=== PATIENT | female | born 1945 | race Caucasian/White ===

== ENCOUNTER 2018-03-26 10:10 | Inpatient (IN) | payer OTHER ==
[~2018-03-26] VITALS: Ht 172.7 cm; Wt 82.1 kg
[2018-03-26] MEDS ORDERED: SODIUM CHLORIDE 0.9% 1,000 ML IV ONE (10:20)
[2018-03-26] MEDS ORDERED: IPRATROPIUM BROM 0.5 MG/2.5ML INH SOL HHN ONE (10:30)
[2018-03-26] MEDS ORDERED: methylPREDNISolone SOD SUCC 125 MG/2 ML VL IV ONE (10:30)
[2018-03-26] MEDS ORDERED: ALBUTEROL SULF 2.5 MG/0.5ML(0.5%) NEB SOLN HHN ONE (10:30)
[2018-03-26] MEDS ORDERED: KETOROLAC TROMETH 30 MG/ML 1ML VIAL IV ONE (10:45)
[2018-03-26 11:05] LABS: Eosinophils # (auto) 0.4 uL; Hematocrit 39.2 % (36.0-46.0); Hemoglobin 12.6 g/dL (12.2-16.2); Mean Corpuscular Hemoglobin 28.7 pg (28.0-32.0); Monocytes # (auto) 0.9 uL
[2018-03-26 11:08] LABS: Basophils # (auto) 0.2 uL; Basophils % (auto) 1.9 % (0.0-2.0); Eosinophils % (auto) 4.8 % (0.0-7.0); Lymphocytes # (auto) 1.3 uL; Lymphocytes % (auto) 15.4 % (10.0-50.0); Mean Corpuscular Hgb Conc. 32.3 g/dL (32.0-36.0); Monocytes % (auto) 11.5 % (0.0-12.0); Neutrophils # (auto) 5.5 uL; Neutrophils % (auto) 66.4 % (37.0-80.0); Nucleated Red Blood Cells % 0.1 %; Platelet Count (auto) 669 10^3/uL (140-450); Red Cell Distribution Width 18.3 % (11.8-14.3); White Blood Cell 8.2 10^3/uL (4.4-10.8)
[2018-03-26 11:34] LABS: Alanine Aminotransferase 11 U/L (13-56); Albumin 2.7 g/dL (3.4-5.0); Alkaline Phosphatase 93 U/L (45-117); Anion Gap 14 (5-15); Aspartate Aminotransferase 14 U/L (15-37); Bilirubin, Total 0.3 mg/dL (0.2-1.0); Blood Urea Nitrogen 8 mg/dL (7-18); Calcium 9.3 mg/dL (8.5-10.1); Carbon Dioxide 17 mmol/L (21-32); Chloride 106 mmol/L (98-107); GFR African American 156 mL/min; GFR Non-African American 129 mL/min; Glucose 81 mg/dL (74-106); Magnesium 2.6 mg/dL (1.6-2.6); Potassium 3.4 mmol/L (3.5-5.1); Sodium 137 mmol/L (136-145); Total Protein 7.9 g/dL (6.4-8.2)
[2018-03-26] MEDS ORDERED: ALBUTEROL SULF 2.5 MG/0.5ML(0.5%) NEB SOLN NEB PRN (12:45)
[2018-03-26] MEDS ORDERED: ACETAMINOPHEN 500 MG TAB PO PRN (12:45)
[2018-03-26] MEDS ORDERED: NITROGLYCERIN 0.4 MG SL TAB SL PRN (12:45)
[2018-03-26] MEDS ORDERED: MORPHINE SULFATE 8mg/ml INJ SDV IV PRN ×2 (12:45)
[2018-03-26] MEDS ORDERED: PROMETHAZINE HCL 25 MG/ML 1ML IV PRN (12:45)
[2018-03-26] MEDS ORDERED: LACTULOSE 20Gm/30ML SOLN PO PRN (12:45)
[2018-03-26] MEDS ORDERED: HYDROcodone-ACET 5/325MG TAB PO PRN (12:45)
[2018-03-26] MEDS: DOXYCYCLINE HYC 100MG/250ML 250 ML IV SCH (12:45)
[2018-03-26] MEDS: SODIUM CHLORIDE 0.9% 1,000 ML IV SCH (12:54)
[2018-03-26] MEDS: PANTOPRAZOLE 40 MG TAB PO SCH (13:00)
[2018-03-26 14:19] LABS: Alcohol, Urine < 3.0 mg/dL (0-5); Amphetamine Screen, Urine NEGATIVE (NEGATIVE); Barbiturate Scree,Urine NEGATIVE (NEGATIVE); Benzodiazephine Screen, Urine NEGATIVE (NEGATIVE); Cannabinoid Screen, Urine NEGATIVE (NEGATIVE); Cocaine Screen, Urine NEGATIVE (NEGATIVE); Opiate Scree,Urine NEGATIVE (NEGATIVE); Phencyclidine Screen, Urine NEGATIVE (NEGATIVE)
[2018-03-26 14:21] LABS: Urine Bacteria FEW /hpf (None Seen); Urine Blood TRACE /uL (Negative); Urine Mucus FEW (None Seen); Urine Specific Gravity 1.011 (1.001-1.035); Urine WBC 3 /hpf (0 - 5)
[2018-03-26] MEDS: methylPREDNISolone SOD SUCC 40 MG/ML VL IV SCH (18:06)
[2018-03-26] MEDS: IPRATROPIUM BROM 0.5 MG/2.5ML INH SOL NEB SCH ×2 (18:20→23:54)
[2018-03-26] MEDS: ALBUTEROL SULF 2.5 MG/0.5ML(0.5%) NEB SOLN NEB SCH ×2 (18:20→23:54)
[2018-03-26] MEDS ORDERED: cefTRIAXone 1GM/10ml IVPUSH 10 ML IV ONE (18:30)
[2018-03-26 21:19] VITALS: BP 128/80
[2018-03-27] VITALS (7 sets, daily range): BP systolic 98–136; BP diastolic 63–76
[2018-03-27] MEDS: methylPREDNISolone SOD SUCC 40 MG/ML VL IV SCH ×5 (00:27→23:32)
[2018-03-27] MEDS: LORazepam 0.5 MG TAB PO PRN ×2 (01:08→22:11)
[2018-03-27] MEDS: TEMAZEPAM 15 MG CAP PO PRN ×2 (01:09→23:32)
[2018-03-27] MEDS: DOXYCYCLINE HYC 100MG/250ML 250 ML IV SCH ×2 (01:10→12:45)
[2018-03-27] MEDS: SODIUM CHLORIDE 0.9% 1,000 ML IV SCH ×3 (01:13→19:30)
[2018-03-27 05:43] LABS: Cholesterol 130 mg/dL (< 200); HDL Cholesterol 47 mg/dL (40-59); LDL Cholesterol 74 mg/dL (< 100); Triglycerides 83 mg/dL (< 150)
[2018-03-27] MEDS: IPRATROPIUM BROM 0.5 MG/2.5ML INH SOL NEB SCH ×3 (07:09→19:44)
[2018-03-27] MEDS: ALBUTEROL SULF 2.5 MG/0.5ML(0.5%) NEB SOLN NEB SCH ×3 (07:09→19:44)
[2018-03-27] MEDS: cefTRIAXone 1GM/10ml IVPUSH 10 ML IV SCH (09:00)
[2018-03-27] MEDS: PANTOPRAZOLE 40 MG TAB PO SCH (10:27)
[2018-03-27] MEDS: ENOXAPARIN SOD 40 MG/0.4 ML SYRINGE SC SCH (10:27)
[2018-03-27] MEDS: HYDROcodone-ACET 5/325MG TAB PO PRN ×3 (11:25→22:11)
[2018-03-27] MEDS: IBUPROFEN 800 MG TAB PO PRN (20:25)
[2018-03-28] MEDS: DOXYCYCLINE HYC 100MG/250ML 250 ML IV SCH ×2 (00:45→12:34)
[2018-03-28] MEDS: methylPREDNISolone SOD SUCC 40 MG/ML VL IV SCH ×3 (04:58→17:38)
[2018-03-28] MEDS: ALBUTEROL SULF 2.5 MG/0.5ML(0.5%) NEB SOLN NEB SCH ×4 (06:46→18:09)
[2018-03-28] MEDS: IPRATROPIUM BROM 0.5 MG/2.5ML INH SOL NEB SCH ×4 (06:46→18:09)
[2018-03-28 09:00] VITALS: BP 115/71
[2018-03-28] MEDS: cefTRIAXone 1GM/10ml IVPUSH 10 ML IV SCH (10:03)
[2018-03-28] MEDS: PANTOPRAZOLE 40 MG TAB PO SCH (10:03)
[2018-03-28] MEDS: ENOXAPARIN SOD 40 MG/0.4 ML SYRINGE SC SCH (10:04)
[2018-03-28] MEDS: SODIUM CHLORIDE 0.9% 1,000 ML IV SCH (10:04)
[2018-03-28] MEDS: HYDROcodone-ACET 5/325MG TAB PO PRN ×3 (10:04→21:52)
[2018-03-28 13:00] VITALS: BP 118/47
[2018-03-28] MEDS: IBUPROFEN 800 MG TAB PO PRN (15:03)
[2018-03-28 17:00] VITALS: BP 114/80
[2018-03-28 21:50] VITALS: BP 118/74
[2018-03-28] MEDS: LORazepam 0.5 MG TAB PO PRN (21:51)
[2018-03-29] MEDS: IPRATROPIUM BROM 0.5 MG/2.5ML INH SOL NEB SCH ×3 (00:13→13:08)
[2018-03-29] MEDS: ALBUTEROL SULF 2.5 MG/0.5ML(0.5%) NEB SOLN NEB SCH ×3 (00:13→13:08)
[2018-03-29] MEDS: HYDROcodone-ACET 5/325MG TAB PO PRN ×4 (02:00→16:03)
[2018-03-29] MEDS: DOXYCYCLINE HYC 100MG/250ML 250 ML IV SCH ×2 (02:01→12:45)
[2018-03-29 05:00] VITALS: BP 136/86
[2018-03-29] MEDS: methylPREDNISolone SOD SUCC 40 MG/ML VL IV SCH ×4 (06:32→18:00)
[2018-03-29] MEDS: SODIUM CHLORIDE 0.9% 1,000 ML IV SCH (07:47)
[2018-03-29 08:09] LABS: Basophils # (auto) 0 uL; Basophils % (auto) 0.1 % (0.0-2.0); Eosinophils # (auto) 0 uL; Hemoglobin 11.1 g/dL (12.2-16.2); Monocytes # (auto) 0.5 uL
[2018-03-29 08:11] LABS: Hematocrit 34.5 % (36.0-46.0); Lymphocytes # (auto) 0.7 uL; Mean Corpuscular Hemoglobin 28.6 pg (28.0-32.0); Mean Corpuscular Volume 89.3 fL (80.0-100.0); Monocytes % (auto) 4.3 % (0.0-12.0); Neutrophils # (auto) 10.1 uL; Neutrophils % (auto) 89.6 % (37.0-80.0); Nucleated Red Blood Cells % 0.1 %; Platelet Count (auto) 647 10^3/uL (140-450); Red Blood Cells 3.86 10^6/uL (4.0-5.20); Red Cell Distribution Width 18.6 % (11.8-14.3); White Blood Cell 11.2 10^3/uL (4.4-10.8)
[2018-03-29 08:25] LABS: BUN/Creatinine Ratio 36.2; Calcium 8.9 mg/dL (8.5-10.1); Potassium 4.2 mmol/L (3.5-5.1)
[2018-03-29 09:00] VITALS: BP 168/91
[2018-03-29] MEDS: cefTRIAXone 1GM/10ml IVPUSH 10 ML IV SCH (09:10)
[2018-03-29] MEDS: ENOXAPARIN SOD 40 MG/0.4 ML SYRINGE SC SCH (10:56)
[2018-03-29] MEDS: PANTOPRAZOLE 40 MG TAB PO SCH (10:56)
[2018-03-29 12:40] VITALS: BP 146/83
[2018-03-29 13:09] VITALS: BP 146/83
[2018-03-29 17:00] VITALS: BP 130/70
== END 2018-03-29 18:00 | disposition home or self-care (01) | DRG 193 ==
LOC: EDBD 10:10 → ER 10:10 → TELE 10:11 → ICU CENTRL 23:44 → DOU IN ICU 23:47 → TELE-CENTR 03-27 21:47
PROVIDERS: ADMIT Internal Medicine; ATTEND Internal Medicine
DX: J18.9 Pneumonia, unspecified organism (principal); J96.00 Acute respiratory failure, unspecified whether with hypoxia or hypercapnia; E43 Unspecified severe protein-calorie malnutrition; N39.0 Urinary tract infection, site not specified; J44.1 Chronic obstructive pulmonary disease with (acute) exacerbation; M06.9 Rheumatoid arthritis, unspecified; I12.9 Hypertensive chronic kidney disease with stage 1 through stage 4 chronic kidney disease, or unspecified chronic kidney disease; N18.9 Chronic kidney disease, unspecified; Z86.73 Personal history of transient ischemic attack (TIA), and cerebral infarction without residual deficits; Z90.710 Acquired absence of both cervix and uterus
CPT/HCPCS: 36415; 36600; 71045; 73630; 80048; 80053; 80061; 80307; 81001; 82550; 82805; 82962; 83605; 83735; 83880; 84443; 84484; 85025; 85379; 85652; 86141; 87040; 87081; 93005; 93306; 94640; 94761; 96361; 96374; 96375; 97530; J1885; J2270; J3490